=== PATIENT | female | born 1950 | race Caucasian/White ===

== ENCOUNTER → 2017-01-28 | Outpatient (CLI) | payer MEDICARE, OTHER ==
[~2017-01-28] MED LIST: ALBU8.5H IH; ASPI-1093 PO; CALC-51 PO; CLON.1 PO; DIPH1TAB PO; FAMO20TA32 PO; HYDR-3971 PO; HYDR25TA PO; KDUR20 PO; LORA1TAB3 PO; METO25 PO; MORP30CP13 PO; SIMV-261 PO; [UNRECOGNIZED DRUG - CODE] PO
== END | disposition home or self-care (01) ==
LOC: RADPV 11:39
PROVIDERS: ATTEND Specialist
DX: M16.0 Bilateral primary osteoarthritis of hip (principal); M17.12 Unilateral primary osteoarthritis, left knee; M25.762 Osteophyte, left knee; M25.362 Other instability, left knee
CPT/HCPCS: 73521

== ENCOUNTER → 2017-11-25 | Outpatient (CLI) | payer MEDICARE, OTHER ==
[~2017-11-25] MED LIST changes: -ALBU8.5H IH; +ALBU8.5H8 IH; -ASPI-1093 PO; +ASPI-1182 PO; +CALC-1038 PO; -CALC-51 PO; +CLON-570 PO; -CLON.1 PO; -HYDR-3971 PO; +HYDR-4069 PO
== END | disposition home or self-care (01) ==
LOC: RADMN 10:15
PROVIDERS: ATTEND Specialist
DX: M43.16 Spondylolisthesis, lumbar region (principal); M51.86 Other intervertebral disc disorders, lumbar region; M87.9 Osteonecrosis, unspecified
CPT/HCPCS: 72131; 72192